=== PATIENT | male | born 1995 | race Caucasian/White ===

== ENCOUNTER 2023-05-02 10:15 | Observation (INO) | payer BC ==
[~2023-05-02] VITALS: Ht 188 cm; Wt 127.0 kg
[2023-05-02] VITALS (9 sets, daily range): BP systolic 115–144; BP diastolic 31–80
[2023-05-02 10:44] LABS: BASOPHILS ABSOLUTE AUTO 0.03 K/mm3 (0.00-0.23); BASOPHILS PERCENT AUTO 0 % (0-2); EOSINOPHILS ABSOLUTE AUTO 0.06 K/mm3 (0.00-0.68); EOSINOPHILS PERCENT AUTO 1 % (0-6); Hemoglobin 14.4 g/dL (13.5-17.5); IMMATURE GRAN ABSOLUTE AUTO 0.04 K/mm3 (0.00-0.10); IMMATURE GRAN PERCENT AUTO 0 % (0-1); LYMPHOCYTES ABSOLUTE AUTO 0.76 K/mm3 (0.84-5.20); LYMPHOCYTES PERCENT AUTO 7 % (21-46); MONOCYTES ABSOLUTE AUTO 1.12 K/mm3 (0.16-1.47); MONOCYTES PERCENT AUTO 11 % (4-13); Mean Corpuscular HGB 27.8 pg (26.0-34.0); Mean Corpuscular HGB Conc 32.7 g/dL (31.5-36.5); Mean Corpuscular Volume 85 fL (80-100); Mean Platelet Volume 10.9 fL (9.1-12.4); NEUTROPHILS ABSOLUTE AUTO 8.62 K/mm3 (1.96-9.15); NEUTROPHILS PERCENT AUTO 81 % (41-73); Platelet Count 213 K/mm3 (150-400); RDW Coefficient Variation 13.3 % (11.7-14.2); RDW Standard Deviation 41.2 fL (35.1-46.3); Red Blood Cell Count 5.18 M/mm3 (4.30-5.90); White Blood Cell Count 10.63 K/mm3 (4.00-11.30)
[2023-05-02 11:00] LABS: Albumin, Blood 3.6 g/dL (3.4-5.0); Albumin/Globulin Ratio 0.9 (0.8-1.8); Bilirubin, Total 1.4 mg/dL (0.1-1.0); Bun/Creatinine Ratio 8.9 (12.0-20.0); Calcium, Blood 9.2 mg/dL (8.5-10.1); Creatinine, Blood 1.12 mg/dL (0.60-1.20); Globulin, Blood 4.2 g/dL (2.2-4.0); Potassium, Blood 3.8 mmol/L (3.5-5.5); Total Protein, Blood 7.8 g/dL (6.4-8.2)
[2023-05-02 11:42] LABS: Source, Urine Voided
[2023-05-02 12:03] LABS: Bilirubin, Urine Neg (Neg); Blood, Urine Neg (Neg); Glucose Qualitative, Urine Neg (Neg); Ketones, Urine Neg (Neg); Leukocyte Esterase, Urine Neg (Neg); Nitrite, Urine Neg (Neg); Protein, Urine 1+ (Neg); Specific Gravity, Urine 1.015 (1.003-1.022); Urobilinogen, Urine 3+ (Normal); pH, Urine 6.5 (5.0-8.0)
[2023-05-02 12:24] LABS: Appearance, Urine Clear (Clear); Color, Urine Yellow (P-Yellow)
--- NOTE | 2023-05-02 21:28 | NUR ---
PT TRANSFERED TO PACU, DR HARGROVE AT BEDSIDE, LEISA GEIGER AT BEDSIDE
[2023-05-03 00:06] VITALS: BP 147/86
[2023-05-03 00:44] VITALS: BP 126/78
[2023-05-03 02:15] VITALS: BP 141/84
[2023-05-03 04:11] VITALS: BP 121/74
--- NOTE | 2023-05-03 05:36 | NUR ---
SUMMARY PT ARRIVED TO ROOM FROM PACU. PT REPORTS FEELING MUCH BETTER AND DENIES DISCOMFORT. PT HAS VOIDED AND TAKING IN PO FLUIDS. PT MEDICATED FOR DISCOMFORT WITH RELIEF. PT CURRENTLY SLEEPING AND IN NO DISTRESS. CALL LIGHT IN REACH.
[2023-05-03 07:10] VITALS: BP 110/76
--- NOTE | 2023-05-03 08:09 | NUR ---
A&OX4, REPORTS PAIN IS TOLERABLE AT THIS TIME, REPORTS AMBULATING DOWN THE HALLS WITHOUT DIFFICULTY, PASSING FLATUS THIS AM, REDNESS PATCH NOTED ON LOWER SCLERA OF PT'S L EYE, DENIES ANY PAIN ON L EYE OR CHANGES IN VISION PT HAVING REGULAR BREAKFAST THIS AM, MONITOR FOR ANY CHANGES.
[2023-05-03] MEDS ORDERED: AMOCLA875 PO (10:52)
[2023-05-03] MEDS ORDERED: Percocet 5-3251 EACH PO (10:54)
--- NOTE | 2023-05-03 11:22 | NUR ---
DISCHARGE PT DC'D HOME, DC INSTRUCTIONS GIVEN, VERBALIZED UNDERSTANDING.
== END 2023-05-03 11:16 | disposition home or self-care (01) ==
LOC: ER 10:15 → SURS 10:16
PROVIDERS: Emergency Medicine; ADMIT Surgery
PROC: 0DTJ4ZZ Resection of Appendix, Percutaneous Endoscopic Approach (ICD-10-PCS; principal; 2023-05-02 17:00)
DX: K35.891 Other acute appendicitis without perforation, with gangrene (principal); Z87.891 Personal history of nicotine dependence
CPT/HCPCS: 74177; 80053; 83690; 85025; 88304; 94640; 94664; 94760; 96361; 96365; 96375; 96376; 99285-25; A9270; G0378; J0295; J1170; J1885; J2270; J2405; J7030; J7120; Q9967